=== PATIENT | female | born 1945 | race Asian ===

== ENCOUNTER 2017-09-25 06:04 | Emergency (ER) | payer MEDICARE, OTHER ==
[2017-09-25] MEDS: HYDROCODONE/APAP (5/325) TAB PO (07:09)
== END 2017-09-25 09:01 | disposition home or self-care (01) ==
LOC: E/R 06:04
DX: S09.8XXA Other specified injuries of head, initial encounter (principal); S00.83XA Contusion of other part of head, initial encounter; W22.01XA Walked into wall, initial encounter; Y92.002 Bathroom of unspecified non-institutional (private) residence as the place of occurrence of the external cause
CPT/HCPCS: 70450; 70486; 99285-25